=== PATIENT | male | born 1970 | race Native Hawaiian/Other Pacific Islander ===

== ENCOUNTER 2016-08-04 00:08 | Emergency (ER) | payer OTHER ==
[~2016-08-04] VITALS: Ht 177.8 cm; Wt 113.0 kg
[~2016-08-04 00:08] MED LIST: CYCL-36 PO; IBUP-238 PO; LORT7.5T3 PO; Z.0.NO CURRENT MEDS
[2016-08-04 00:27] VITALS: BP 120/77; PULSE 67; RESP 18; TEMP 98; O2SAT 97
[2016-08-04 01:04] VITALS: BP 120/77; PULSE 67; RESP 18; TEMP 98; O2SAT 97
--- NOTE | 2016-08-04 01:41 | RADHPO ---
EXAM DATE/TIME: 08/04/2016 01:29 [place] COMPARISON: No previous studies available for comparison. INDICATIONS : Right knee pain after patient dropped heavy object onto knee 1 week ago. MEDICAL HISTORY : None. SURGICAL HISTORY : None. ENCOUNTER: Initial ACUITY: 1 week PAIN SCORE: 6/10 LOCATION: Right anterior and lateral knee FINDINGS: Four view examination of the right knee demonstrates no evidence of fracture or dislocation. Bony mi neralization is normal. The articular surfaces are intact. The suprapatellar soft tissues have a no rmal configuration. No osteophyte formation at the superior pole of the patella. Marginal osteophyte formation and medial femoral condyle and tibial plateau. CONCLUSION: Mild osteoarthritis. Nader Abarca MD on August 04, 2016 at 1:38 Board Certified Radiologist. This report was verified electronically.
[2016-08-04] MEDS ORDERED: IBUP-232 PO (02:32)
--- NOTE | 2016-08-04 02:41 | PD ---
HPI Chief Complaint: Injury Time Seen by Provider: 01:23 Travel History International Travel<30 days: No Contact w/Intl Traveler<30days: No Traveled to known affect area: No History of Present Illness HPI The patient is a 45-year-old male who is standing near conveyor belt when some boxes fell onto his right knee. This happened on the 15th of this month. The patient complains of persistent pain in that knee and inability to walk for long periods of time. He is not able to flex his knee fully because of pain. He denies any giving way or locking. The pain is diffuse pain over the anterior portion of the right knee. It is not confined to the joint line. 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 PFSH Past Medical History Diminished Hearing: No Immunizations Current: Yes Tetanus Vaccination: Unknown Influenza Vaccination: No Social History Alcohol Use: Yes Tobacco Use: Yes Substance Use: No Allergies-Medications (Allergen,Severity, Reaction): Coded Allergies: Aspirin (Verified Allergy, Severe, SWELLING, 08/04/16) Motrin (Verified Adverse Reaction, Mild, Ulcers, 08/04/16) Reported Meds & Prescriptions Reported Meds & Active Scripts Active Ibuprofen 600 Mg Tab 600 Mg PO TID Review of Systems Except as stated in HPI: all other systems reviewed are Neg Physical Exam Narrative GENERAL: The patient is obese, alert, oriented 3 and slight apparent distress with his right knee pain. His vital signs are normal. SKIN: Warm and dry. No contusions or skin rashes seen around the right knee. HEAD: Atraumatic. Normocephalic. EYES: Pupils equal and round. No scleral icterus. No injection or drainage. ENT: No nasal bleeding or discharge. Mucous membranes pink and moist. NECK: Trachea midline. No JVD. CARDIOVASCULAR: Regular rate and rhythm. No murmur appreciated. RESPIRATORY: No accessory muscle use. Clear to auscultation. Breath sounds equal bilaterally. GASTROINTESTINAL: Abdomen soft, non-tender, nondistended. Hepatic and splenic margins not palpable. MUSCULOSKELETAL: No obvious deformities. No clubbing. No cyanosis. No edema. No swelling or deformity is noted around the right knee. Patellar crepitus is normal, Enoc, collaterals and drawer show intact ligaments. The tenderness is diffuse extending about 10 cm above the knee anteriorly and going across the knee and 5 cm below the joint line. He is not particularly tender over the bursa in these areas. The patient lacks 10 range of motion on flexion because of pain. NEUROLOGICAL: Awake and alert. No obvious cranial nerve deficits. Motor grossly within normal limits. Normal speech. PSYCHIATRIC: Appropriate mood and affect; insight and judgment normal. Data Data Last Documented VS Vital Signs Date Time Temp Pulse Resp B/P Pulse Ox O2 Delivery O2 Flow Rate FiO2 08/04/16 01:08 67 18 97 Room Air 08/04/16 01:04 98.0 120/77 Orders Knee, Complete (4vws) (08/04/16 01:23) MDM Medical Decision Making Medical Screen Exam Complete: Yes Emergency Medical Condition: Yes Medical Record Reviewed: Yes Differential Diagnosis Fracture knee, contusion knee, osteoarthritis knee, joint infection kneehighly unlikely Narrative Course The patient has osteoarthritis knee. He needs to rest, take Motrin regularly and follow-up with his primary care physician. Diagnosis Primary Impression: Osteoarthritis of right knee Additional Instructions: As we discussed, take the Motrin regularly. Rest and time usually all then calming down the knee. Follow-up with your primary care physician next week. Med/Other Pt SpecificInfo: Prescription(s) given Scripts Ibuprofen 600 Mg Ojl208 Mg PO TID #45 TAB Ref 0 Prov:Ronnell Cobian MD 08/04/16 Disposition: 01 DISCHARGE HOME Condition: Stable Ronnell Cobian MD Aug 04, 2016 02:41
[2016-08-04 02:43] VITALS: BP 144/79; PULSE 83; RESP 18; O2SAT 96
[2016-08-04] MEDS ORDERED: MOBI15TA PO (02:46)
[2016-08-04] MEDS ORDERED: MELOXICAM 15 MG TAB PO ONE (03:00)
== END 2016-08-04 03:15 | disposition home or self-care (01) ==
LOC: PHED 00:08
DX: M17.11 Unilateral primary osteoarthritis, right knee (principal)
CPT/HCPCS: 73564; 99283